=== PATIENT | female | born 1980 | race Caucasian/White ===

== ENCOUNTER 2024-09-12 16:44 | Emergency (ER) | payer OTHER ==
[~2024-09-12] VITALS: Ht 162.5 cm; Wt 63.5 kg
[2024-09-12] MEDS ORDERED: Tdap Vaccine 0.5 ML SYR (Adult Vaccine) IM ONE (17:15)
[2024-09-12] MEDS ORDERED: CEPHALEXIN500 M1 PO (17:38)
== END 2024-09-12 17:43 | disposition home or self-care (01) ==
LOC: ED 16:44
DX: S61.210A Laceration without foreign body of right index finger without damage to nail, initial encounter (principal); W26.0XXA Contact with knife, initial encounter; Y93.89 Activity, other specified; Y92.89 Other specified places as the place of occurrence of the external cause; Y99.8 Other external cause status